=== PATIENT | male | born 2000 | race Caucasian/White ===

== ENCOUNTER 2025-07-10 18:50 | Emergency (ER) | payer SELFPAY ==
[2025-07-10] MEDS: Diphtheria,Pertussis(Acell),Tetanus Vaccine 0.5 ML Syringe IM ONE (19:26)
[2025-07-10] MEDS: Iopamidol 755 MG/ML 500 ML Multipack Bottle IVPUSH STA (22:15)
== END 2025-07-10 22:22 | disposition home or self-care (01) ==
LOC: MW.ED 18:50
DX: S71.112A Laceration without foreign body, left thigh, initial encounter (principal); Z79.899 Other long term (current) drug therapy; Z75.3 Unavailability and inaccessibility of health-care facilities; W26.0XXA Contact with knife, initial encounter; Z23 Encounter for immunization
CPT/HCPCS: 12001; 73706; 90471; 99283; A9270; J2003; Q9967